=== PATIENT | male | born 2000 | race Caucasian/White ===

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

== ENCOUNTER → 2019-09-21 16:18 | Outpatient (CLI) | payer OTHER, SELFPAY ==
[2019-09-21 18:02] LABS: Alanine Aminotransferase 17 IU/L (21-72); Albumin 5.3 g/dL (3.5-5.0); Albumin Globulin Ratio 2.3 (1.0-2.8); Alkaline Phosphatase 80 U/L (38-126); Aspartate Aminotransferase 24 IU/L (17-59); BUN Creatinine Ratio 21.3 (6-22); Bilirubin Total 0.6 mg/dL (0.2-1.3); Blood Urea Nitrogen 17 mg/dL (9-20); Calcium 10.5 mg/dL (8.4-10.2); Carbon Dioxide 30 mmol/L (22-32); Chloride 99 mmol/L (98-107); Estimated Glomerular Filt Rate > 60.0 mL/min (>60); Globulin 2.3 g/dL (1.7-4.1); Glucose 107 mg/dL (70-100); HEMOLYSIS 18 (0-50); Potassium 5.2 mmol/L (3.4-5.1); Sodium 140 mmol/L (137-145); Total Protein 7.6 g/dL (6.3-8.2)
[2019-09-21 18:30] LABS: TSH w/ Reflex to FT4 2.66 uIU/mL (0.47-4.68)
== END ==
PROVIDERS: Family Provider Registered Nurse; PCP Registered Nurse; Visit Provider Hospitalist
DX: E04.9 Nontoxic goiter, unspecified (principal)
CPT/HCPCS: 36415; 80053; 84443

== ENCOUNTER → 2019-09-27 08:42 | Outpatient (CLI) | payer OTHER, SELFPAY ==
--- NOTE | 2019-09-27 08:45 | DI.US.S_ITS ---
PROCEDURE: US THYROID INDICATIONS: NONTOXIC GOITER TECHNIQUE: Real-time scanning was performed of the thyroid gland, with image documentation. COMPARISON: None. FINDINGS: Right: Thyroid lobe measures 3.8 x 1.2 x 1.2 cm, and is homogeneous in echotexture. Left: Thyroid lobe measures 3.7 x 1.1 x 1.0 cm, and is homogenous in echotexture. Isthmus: 2 mm thick. IMPRESSION: Normal size and echotexture of thyroid gland. Dictated by: Brandan Nicholas M.D. on 09/27/2019 at 10:32 Approved by: Brandan Nicholas M.D. on 09/27/2019 at 10:33
== END ==
PROVIDERS: Family Provider Registered Nurse; PCP Registered Nurse; Visit Provider Hospitalist
DX: E04.9 Nontoxic goiter, unspecified (principal)
CPT/HCPCS: 76536

== ENCOUNTER 2019-10-23 05:23 | Emergency (ER) | payer OTHER, SELFPAY ==
[2019-10-23 05:33] VITALS: BP 128/88; PULSE 91; RESP 16; TEMP 36.9; O2SAT 97; BMI 18.3
--- NOTE | 2019-10-23 05:48 | ED_ITS ---
HPI - General Adult General Chief complaint: Eye Problems Stated complaint: something in vision field Time Seen by Provider: 10/23/19 05:32 Source: patient and family Mode of arrival: Ambulatory Limitations: no limitations History of Present Illness HPI narrative: 19-year-old male here for evaluation of bright flashing lights in both of his eyes. He states that the symptoms have been going on since last evening. Denies any other associated symptoms. He states that the flashes are ?pulsating? he states there white in color. They are in both of his eyes. They are worse when he closes his eyes. Almost resolved when he opens his eyes. He does see them in the eye that is closed when he only closes 1 eye. When he closes his eyes and then moves his eyeball he states that the flashes follow where he is looking ?somewhat ?he is worried that he is going to go blind. He does were glasses. No contacts. No prior surgeries on his eyes. He states there are no black spots in the areas where the white flashes are located Related Data Home Medications Medication Instructions Recorded Confirmed CA PANTOTHENATE/FOLIC ACID/VIT 1 tab PO QDAY #0 01/26/13 01/27/19 (MULTIVITAMIN) Allergies Allergy/AdvReac Type Severity Reaction Status Date / Time No Known Drug Allergies Allergy Unverified 09/21/19 15:59 Review of Systems Constitutional Constitutional: Denies fever(s) and Denies frequent falls Eyes Eyes: Denies blind spots, Denies blurry vision, Denies decreased night vision, Denies diplopia, Denies dry eyes, Denies floaters, Denies irritation, Denies loss of vision, Reports seeing flashes, Denies photophobia and Denies spots in vision Cardiovascular Cardiovascular: Denies chest pain and Denies dyspnea Respiratory Respiratory: Denies dyspnea Integumentary/Breasts Skin/Breast: Denies rash Neurologic Neurologic: Denies behavioral changes, Denies frequent falls and Denies loss of vision Psychiatric Psychiatric: Reports anxiety and Denies behavioral changes Hematologic/Lymphatic Hematologic/Lymphatic: Denies easy bleeding and Denies easy bruising Patient History Medical History Anxiety and depression (Inactive) Attention deficit hyperactivity disorder (ADHD), combined type (Inactive) Enlarged thyroid (Inactive) Generalized anxiety disorder (Inactive) Social anxiety disorder (Inactive) Social History Smoking Status: Never smoker alcohol intake: never substance use type: does not use Substance Use Type: does not use Exam Initial Vital Signs Initial Vital Signs: Vital Signs Temperature 98.5 F 10/23/19 05:33 Pulse Rate 91 H 10/23/19 05:33 Respiratory Rate 16 10/23/19 05:33 Blood Pressure 128/88 10/23/19 05:33 Pulse Oximetry 97 10/23/19 05:33 Const General: cooperative, comfortable and well developed Orientation: alert, awake and oriented x3 HENMT Head: normal to inspection and normocephalic Ears: TM's normal bilaterally Nose: external nose normal Mouth: oral mucosae normal Eyes Visual Vogel: normal visual vogel by confrontation Alignment and Position: alignment normal Periorbital: periorbital findings normal Eyelids: eyelids normal Conjunctivae: conjunctivae normal Sclera: sclerae normal Cornea: corneas normal Pupils: PERRL, dilated, not fixed and pupil size bilaterally 8 EOM: EOM intact bilaterally Direct ophthalmoscopy: normal light reflex, photophobia present, no papilledema, fundi normal bilaterally, photophobia not present and no vascular abnormalities Resp Effort & Inspection: normal respiratory effort Cardio Rate: regular rate Skin Lesions: no lesions Rashes: no rashes Neuro General: alert, awake and oriented x3 Cranial Nerves: CN's II-XI intact bilaterally Cognition: normal cognition Speech: speech normal Psych Appearance: well kempt Affect: anxious affect Course Orders Ordered: Discontinued Medications Proparacaine HCl (Parcaine 0.5% Ophth Kerri) 1 drops EYE-LEFT NOW ONE Stop: 10/23/19 05:34 Vital Signs Vital signs: Vital Signs - 8 hr 10/23/19 05:33 Temperature 98.5 F Pulse Rate 91 H Respiratory Rate 16 Blood Pressure 128/88 Pulse Oximetry 97 Medical Decision Making [facility] Narrative Medical decision making narrative: Interocular pressure right eye 22 interocular left eye 18. Visual acuity 20/20 OD and OS patient does have dilated pupils which made a direct visualization of the optic disc and read no fairly easy at bedside. I see no papilledema. No physical exam findings of central retinal artery or central retinal vein occlusion. The retina appears normal. No foreign bodies were noted in the eye. Symptoms could potentially be vitreous detachment. He is also extremely anxious. Does have a history of anxiety. This could also be adding to his symptoms. I do not feel the patient needs emergent ophthalmological evaluation. I did discuss this with the patient and his mother who is at bedside. Plan will be if his symptoms worsen or do not improve they can call the ophthalmology department tomorrow for follow-up. They were given return precautions. He expressed understanding and agreement plan. Discharge Plan Departure Patient Disposition: Home Clinical Impression: Vision abnormalities Instructions: DI for Visual Field Disturbances Activity Restrictions/Additional Instructions: If her symptoms worsen or do not improve you can contact the ophthalmology department here at the [facility] at [phone]. You can contact them tomorrow morning. Return to the emergency department for any new or worsening symptoms Prescriptions: No Action CA PANTOTHENATE/FOLIC ACID/VIT (MULTIVITAMIN) 1 tab PO QDAY Qty: 0 RF: 0 Referrals: Patria Simon ARNP [Primary Care Provider] -
[2019-10-23] MEDS: PROPARACAINE 0.5% OPHTH SOL 1 DROPS EYE-LEFT (06:18)
== END 2019-10-23 06:27 | disposition home or self-care (01) ==
LOC: ED 06:02
PROVIDERS: Emergency Provider Emergency Medicine; Family Provider Registered Nurse; PCP Registered Nurse
DX: H53.9 Unspecified visual disturbance (principal)
CPT/HCPCS: 99283

== ENCOUNTER 2024-03-12 19:21 | Emergency (ER) | payer BC, SELFPAY ==
[2024-03-12 19:31] VITALS: BP 134/97; PULSE 74; RESP 24; TEMP 37.2; O2SAT 97; BMI 25.8
--- NOTE | 2024-03-12 22:32 | ED_ITS ---
HPI - Psych General Chief Complaint: Psychiatric Symptoms Stated Complaint: Mental Health Issue Time Seen by Provider: 03/12/24 21:43 Source: patient and family Mode of arrival: Ambulatory History of Present Illness HPI Narrative: 23-year-old male with history of OCD, anxiety, depression presents with his parents for worsening anxiety and depression. Patient reportedly had medication changed by his psychiatrist 1.5 months ago and thinks that this afternoon he had a ?bad reaction to it?. While in the emergency department patient states that he feels much better and has no complaints. Patient's case discussed with his parents with patient's permission. They state that patient has had longstanding anxiety and depression that only seems to be getting worse. They state that he was preoccupied with his brain stating ?something is wrong, something is wrong?. They also state that patient's functionality has declined and he cries every night due to his anxiety and depression. He has no friends and recently the one thing he liked to do (learning [place]) was taken away since the person teaching moved away. Parents are fearful of patient's overall mental state and believe he needs help. Related Data Home Medications Medication Instructions Recorded Confirmed levothyroxine 75 mcg tablet 75 mcg PO DAILY 04/14/22 03/12/24 methylphenidate HCl 20 mg tablet 20 mg PO DAILY 03/12/24 03/12/24 Previous Rx's Medication Instructions Recorded fluvoxamine 50 mg tablet 100 mg (2 x 50 mg) PO DAILY #60 01/27/24 tabs Allergies Allergy/AdvReac Type Severity Reaction Status Date / Time No Known Drug Allergies Allergy Verified 11/12/22 15:08 Review of Systems Review of Systems Narrative: Negative except as noted above Patient History Medical History Obsessive-compulsive disorder with good or fair insight Enlarged thyroid Anxiety and depression Attention deficit hyperactivity disorder (ADHD), combined type Social anxiety disorder Generalized anxiety disorder Social History Smoking Status: Never smoker alcohol intake: never substance use type: does not use Smoking Status: Never smoker Substance Use Type: does not use Exam Initial Vital Signs Initial Vital Signs: Vital Signs Temperature 99 F 03/12/24 19:31 Pulse Rate 74 03/12/24 19:31 Respiratory Rate 24 03/12/24 19:31 Blood Pressure 134/97 H 03/12/24 19:31 Pulse Oximetry 97 03/12/24 19:31 Oxygen Delivery Method Room Air 03/12/24 19:31 Const: Awake, alert, no acute distress, nontoxic appearing Cardiac: regular rate, regular rhythm RESP: unlabored, clear bilaterally, no wheezing GI: Soft, nontender, nondistended, no rebound, no guarding MSK: Atraumatic, full range of motion, pulses equal Skin: Warm, Dry, intact, no rashes Neuro: AO x3, CN II-XII grossly intact, moves all extremities Psych: Flat affect, moderate eyesight, poor insight Course Orders Ordered: ED Orders 03/12/24 22:28 EKG-12 Lead Stat 03/12/24 22:41 CT head/brain wo con Stat 03/12/24 22:46 Acetaminophen Stat CBC Auto Diff [Complete Blood Count AUTO DIFF] Stat CMP [Comprehensive Metabolic Panel] Stat COVID19 -Nasal RAPID Stat Ethanol (ETOH) Stat Ictotest Urine Stat Salicylate Stat TSH [Thyroid Stimulating Hormone] Stat UA Complete [Urinalysis and Microscopic] Stat Urine Drug Screen, Rapid Stat 03/13/24 01:01 Consult to DIRECTOR INSURANCE - Game Moderator Stat Discontinued Medications Ondansetron HCl (Ondansetron 4 Mg Odt) 4 mg SL NOW ONE Stop: 03/12/24 23:36 Last Admin: 03/12/24 23:42 Dose: 4 mg Documented By: CHINEDU Quetiapine Fumarate (Quetiapine 25 Mg Tablet) 50 mg PO NOW ONE Stop: 03/12/24 23:45 Last Admin: 03/12/24 23:49 Dose: 50 mg Documented By: CHINEDU Vital Signs Vital signs: Vital Signs - 8 hr 03/12/24 19:31 Temperature 99 F Pulse Rate 74 Respiratory Rate 24 Blood Pressure 134/97 H Pulse Oximetry 97 Oxygen Delivery Method Room Air MDM - Psych Lab Data 03/12/24 22:46 03/12/24 22:46 Labs: Lab Results 03/12/24 03/12/24 Range/Units 22:46 22:46 WBC 10.7 (4.5-11.0) X10^3/uL RBC 5.46 (4.5-5.9) X10^6/uL Hgb 15.9 (13.5-17.5) g/dL Hct 46.5 (41-53) % MCV 85.1 (80-100) fL MCH 29.2 (26-34) PG MCHC 34.3 (30-36) % RDW 13.6 (11.6-14.8) % Plt Count 276 (150-400) X10^3/uL Neut % (Auto) 66.3 (50-75) % Lymph % (Auto) 26.4 (25-40) % [place] % (Auto) 5.6 (3-14) % Eos % (Auto) 0.8 L (2-4) % Baso % (Auto) 0.9 (0-2) % Neut # (Auto) 7100 H (0732-7348) /uL Lymph # (Auto) 2800 (9945-9144) /uL [place] # (Auto) 600 (0-900) /uL Eos # (Auto) 100 (0-450) /uL Baso # (Auto) 100 (0-100) /uL Sodium 140 (137-145) mmol/L Potassium 3.8 (3.4-5.1) mmol/L Chloride 105 (98-107) mmol/L Carbon Dioxide 27 (22-32) mmol/L BUN 14 (9-20) mg/dL Creatinine 0.95 (0.66-1.25) mg/dL Estimated GFR > 60 (>60) mL/min BUN/Creatinine Ratio 14.7 (6-22) Glucose 94 (70-100) mg/dL Calcium 9.9 (8.4-10.2) mg/dL Total Bilirubin 0.6 (0.2-1.3) mg/dL AST 29 (17-59) IU/L ALT 34 (<50) IU/L Alkaline Phosphatase 87 (38-126) U/L Total Protein 7.9 (6.3-8.2) g/dL Albumin 5.1 H (3.5-5.0) g/dL Globulin 2.8 (1.7-4.1) g/dL Albumin/Globulin Ratio 1.8 (1.0-2.8) TSH 9.80 H (0.47-4.68) uIU/mL Urine Color Yellow Urine Appearance Clear Urine pH 6.0 Normal (4.5-8.0) Ur Specific [place] >=1.030 H (1.000-1.035) Urine Protein Negative (Negative) Urine Glucose (UA) Negative (Negative) g/dL Urine Ketones 3+ H (NEGATIVE) Urine Occult Blood Trace-intact (Negative) Urine Nitrate Negative (Negative) Urine Bilirubin 1+ H (NEGATIVE) Ur Bilirubin Confirm Negative (Negative) Urine Urobilinogen 0.2 (0.2) E.U./dL Ur Leukocyte Esterase Negative (NEGATIVE) Urine RBC 1-5/hpf (0-5/HPF) Urine WBC None seen (0-5/HPF) Ur Squamous Epith Cells 0-1 /hpf (0-5/HPF) Urine Bacteria Occasional (0-1) (None) Urine Mucus 2+ H (Negative) Ur Culture Indicated? Cult not indicated Vol Urine Centrifuged 10ml (spun) Salicylates < 1.0 (<20) mg/dL U Opiates 300ng/mL cut Negative (Negative) Ur Oxycodone Screen Negative (Negative) Urine Methadone Screen Negative (Negative) Acetaminophen < 10 (10-30) ug/mL Ur Barbiturates Screen Negative (Negative) U Tricyclic Antidepress Negative (Negative) Ur Phencyclidine Scrn Negative (Negative) Ur Amphetamines Screen Negative (Negative) U Methamphetamines Scrn Negative (Negative) Ur MDMA Scrn (Ecstasy) Negative (Negative) U Benzodiazepines Scrn Negative (Negative) Urine Cocaine Screen Negative (Negative) U Marijuana (THC) Screen Negative (Negative) Urine Specific [place] Normal (Normal) Ethyl Alcohol < 10 ( - 10) mg/dL Ur Creatinine Normal (Normal) SARS-CoV-2 (PCR) Negative (Negative) MDM Narrative Medical decision making narrative: Worsening anxiety and OCD tendencies. Parents are very worried about patient's declining mental health status. He has been on numerous medications and switches from his psychiatrist but they do not seem to be improving. Patient denies active SI or HI, would like to pursue voluntary treatment. Medical clearance labs ordered. Parents state that patient is obsessed with the idea that there was something wrong in his brain. It does not appear that patient was jhonny had brain imaging performed earlier so a CT brain will be ordered. Laboratory work is reviewed, negative for acute findings. CT brain negative for acute findings. Medically cleared for social work evaluation tomorrow morning. In the middle of the night the patient called his parents stating that he no longer wanted to wait for social work and requested that they come and pick him up from the emergency department. Patient counseled on his lab and imaging findings, emphasized the need for follow up with his psychiatrist. Discharge Plan Departure Patient Disposition: Home Clinical Impression: Anxiety and depression Instructions: DI for Anxiety -- Adult Activity Restrictions/Additional Instructions: Your laboratory work today was significant for an elevated thyroid stimulating hormone level. This is an incidental finding, but I do recommend that you follow up with your primary care physician for this. Your brain scan was normal. Call [phone] if you experience a mental health crisis Prescriptions: No Action levothyroxine 75 mcg tablet 75 mcg PO DAILY fluvoxamine 50 mg tablet 100 mg PO DAILY Qty: 60 2RF methylphenidate HCl 20 mg tablet 20 mg PO DAILY Referrals: Mayo Guillen MD [Primary Care Provider] - Stand Alone Forms: Patient Portal/API
--- NOTE | 2024-03-12 22:41 | DI.CT.S_ITS ---
PROCEDURE: CT HEAD/BRAIN WO CON INDICATIONS: worsening delusions, paranoia TECHNIQUE: Noncontrast 4.5 mm thick angled axial sections acquired from the foramen magnum to the vertex, with coronal and sagittal reformats. For radiation dose reduction, the following was used: automated exposure control, adjustment of mA and/or kV according to patient size. COMPARISON: None. FINDINGS: Image quality: Diagnostic. CSF spaces: Basal cisterns are patent. No extra-axial fluid collections. The ventricles are symmetric in size and shape. Brain: No intracranial bleeds or masses. There is cerebral volume loss for age, with resultant ventricular and sulcal prominence. There are periventricular and deep white matter chronic small vessel ischemic changes. There is intracranial internal carotid artery atherosclerosis. Skull and face: Calvarium and visualized facial bones appear intact, without suspicious lesions. Sinuses: Visualized sinuses and mastoids are clear. IMPRESSION: No acute intracranial pathology. Dictated by: Albert Davalos M.D. on 03/12/2024 at 22:46 Approved by: Albert Davalos M.D. on 03/12/2024 at 22:47
[2024-03-12 22:57] LABS: Add Manual Diff / Slide Review NO; Basophils Absolute Auto 100 /uL (0-100); Basophils Percent Auto 0.9 % (0-2); Eosinophils Absolute Auto 100 /uL (0-450); Eosinophils Percent Auto 0.8 % (2-4); Hematocrit 46.5 % (41-53); Hemoglobin 15.9 g/dL (13.5-17.5); Lymphocytes Absolute Auto 2800 /uL (1100-4500); Lymphocytes Percent Auto 26.4 % (25-40); Mean Corpuscular HGB Conc 34.3 % (30-36); Mean Corpuscular Hemoglobin 29.2 PG (26-34); Mean Corpuscular Volume 85.1 fL (80-100); Monocytes Absolute Auto 600 /uL (0-900); Monocytes Percent Auto 5.6 % (3-14); Neutrophils Absolute Auto 7100 /uL (1500-7000); Neutrophils Percent Auto 66.3 % (50-75); Platelet Count 276 X10^3/uL (150-400); Red Blood Cell Count 5.46 X10^6/uL (4.5-5.9); Red Cell Distribution Width 13.6 % (11.6-14.8); White Blood Cell Count 10.7 X10^3/uL (4.5-11.0)
[2024-03-12 23:07] LABS: Appearance Urine UA CLEAR; Bilirubin Urine UA 1+ (NEGATIVE); Color Urine UA YELLOW; Glucose Urine UA NEGATIVE (Negative); Ketones Urine UA 3+ (NEGATIVE); Leukocyte Esterase Urine UA NEGATIVE (NEGATIVE); Nitrite Urine UA NEGATIVE (Negative); Occult Blood Urine UA TRACE-INTACT (Negative); Protein Urine UA NEGATIVE (Negative); Specific Gravity Urine UA >=1.030 (1.000-1.035); Urobilinogen Urine UA 0.2 E.U./dL (0.2)
[2024-03-12 23:11] LABS: UR Morphine/Opiate cutoff 300 Negative (Negative); Ur Creatinine Normal (Normal); Ur Specific Gravity Normal (Normal); Urine Amphetamines Negative (Negative); Urine Barbiturates Negative (Negative); Urine Benzodiazepines Negative (Negative); Urine Cocaine Negative (Negative); Urine MDMA Negative (Negative); Urine Methadone Negative (Negative); Urine Methamphetamines Negative (Negative); Urine Oxycodone Negative (Negative); Urine Phencyclidine Negative (Negative); Urine Tetrahydrocannabinol Negative (Negative); Urine Tricyclic Antidepressant Negative (Negative); Urine pH Normal (Normal)
[2024-03-12 23:12] LABS: Acetaminophen < 10 ug/mL (10-30); Alanine Aminotransferase 34 IU/L (<50); Albumin 5.1 g/dL (3.5-5.0); Albumin Globulin Ratio 1.8 (1.0-2.8); Alkaline Phosphatase 87 U/L (38-126); Aspartate Aminotransferase 29 IU/L (17-59); BUN Creatinine Ratio 14.7 (6-22); Bilirubin Total 0.6 mg/dL (0.2-1.3); Blood Urea Nitrogen 14 mg/dL (9-20); Calcium 9.9 mg/dL (8.4-10.2); Carbon Dioxide 27 mmol/L (22-32); Chloride 105 mmol/L (98-107); Estimated Glomerular Filt Rate > 60 mL/min (>60); Ethanol (ETOH) < 10 mg/dL; Globulin 2.8 g/dL (1.7-4.1); Glucose 94 mg/dL (70-100); HEMOLYSIS 16 (0-50); Potassium 3.8 mmol/L (3.4-5.1); Salicylate < 1.0 mg/dL (<20); Sodium 140 mmol/L (137-145); Total Protein 7.9 g/dL (6.3-8.2)
[2024-03-12 23:16] LABS: Bacteria Urine Occasional (0-1); Culture Indicated Urine Cult Not Indicated; Ictotest Urine Negative (Negative); Mucus Urine 2+ (Negative); RBC Urine 1-5/HPF (0-5/HPF); Squamous Epithelial Cell Urine 0-1 /HPF (0-5/HPF); Urine Volume 10mL (spun); WBC Urine None Seen (0-5/HPF)
[2024-03-12 23:35] LABS: COVID19 -Nasal RAPID Negative (Negative)
[2024-03-12] MEDS: ONDANSETRON 4 MG ODT SL (23:42)
[2024-03-12] MEDS: QUETIAPINE 25 MG TABLET 50 MG PO (23:49)
--- NOTE | 2024-03-13 01:15 | PC.NURSE ---
Pt called out using call light. Pt states that he was nervous about being transferred and felt that something was wrong with his brain. Pt reoriented to the situation and walked through breathing exercises. Pt was also vomiting after hyperventilation. Pt advised that his tests and labs were within acceptable limits. Pt walked through signs and symptoms of stroke. Pt also given an explanation as to low likely millan of him having a stroke at this time. Pt verbalized understanding. Pt tearful, but appears to have calmed down. Pt sheets changed, warm blankets given. Pt lights turned off for comfort, door closed to minimize stimulation.
--- NOTE | 2024-03-13 03:30 | PC.NURSE ---
Pt states that he would like to leave due to another pts aggressive behavior and yelling in another room.
--- NOTE | 2024-03-13 03:56 | PC.NURSE ---
Pt stating that he wants to leave and that he has called his parents. Pts parents at the bedside. This RN discussed options with the pt and the pts parents. Pt opts to leave still. Pt encouraged to seek help and return at a later time. Pt advised that social work would be back in the morning and encouraged to check back in and be screened. Pt and pts parents verbalized understanding. DAMASO Buchanan advised that the pt is leaving. Discharge paperwork reviewed with the pt and pts parents. Questions, comments, and concerns addressed.
[2024-03-13 04:26] VITALS: BP 148/88; PULSE 121; RESP 18; O2SAT 94
== END 2024-03-13 04:00 | disposition home or self-care (01) ==
PROVIDERS: Emergency Provider Emergency Medicine; Family Provider Registered Nurse; PCP Student in an Organized Health Care Education/Training Program
DX: F41.9 Anxiety disorder, unspecified (principal); F22 Delusional disorders; Z20.822 Contact with and (suspected) exposure to COVID-19
CPT/HCPCS: 70450; 80053; 80305; 80320; 80329; 81001; 84443; 85025; 87635; 99283; 99284; G0480

== ENCOUNTER → 2024-08-24 08:12 | Outpatient (CLI) | payer BC, SELFPAY ==
[2024-08-24 08:34] LABS: Add Manual Diff / Slide Review NO; Basophils Absolute Auto 0 /uL (0-100); Basophils Percent Auto 0.5 % (0-2); Eosinophils Absolute Auto 200 /uL (0-450); Eosinophils Percent Auto 2.5 % (2-4); Hematocrit 45.5 % (41-53); Hemoglobin 15.6 g/dL (13.5-17.5); Lymphocytes Absolute Auto 2900 /uL (1100-4500); Lymphocytes Percent Auto 35.8 % (25-40); Mean Corpuscular HGB Conc 34.3 % (30-36); Mean Corpuscular Hemoglobin 28.6 PG (26-34); Mean Corpuscular Volume 83.4 fL (80-100); Monocytes Absolute Auto 500 /uL (0-900); Monocytes Percent Auto 6.7 % (3-14); Neutrophils Absolute Auto 4400 /uL (1500-7000); Neutrophils Percent Auto 54.5 % (50-75); Platelet Count 349 X10^3/uL (150-400); Red Blood Cell Count 5.45 X10^6/uL (4.5-5.9); Red Cell Distribution Width 14.4 % (11.6-14.8)
[2024-08-24 09:01] LABS: Alanine Aminotransferase 41 IU/L (<50); Albumin 4.4 g/dL (3.5-5.0); Albumin Globulin Ratio 1.7 (1.0-2.8); Alkaline Phosphatase 81 U/L (38-126); Aspartate Aminotransferase 26 IU/L (17-59); BUN Creatinine Ratio 11.3 (6-22); Bilirubin Total 0.6 mg/dL (0.2-1.3); Blood Urea Nitrogen 11 mg/dL (9-20); Calcium 9.6 mg/dL (8.4-10.2); Carbon Dioxide 28 mmol/L (22-32); Chloride 103 mmol/L (98-107); Estimated Glomerular Filt Rate > 60 mL/min (>60); Globulin 2.6 g/dL (1.7-4.1); Glucose 102 mg/dL (70-100); HEMOLYSIS < 15 (0-50); Potassium 4.7 mmol/L (3.4-5.1); Sodium 138 mmol/L (137-145)
[2024-08-24 18:47] LABS: Lithium 0.2 mmol/L (0.6-1.2)
== END ==
PROVIDERS: Family Provider Registered Nurse; Referring Provider Psychiatry & Neurology Psychiatry; Visit Provider Psychiatry & Neurology Psychiatry
DX: F31.9 Bipolar disorder, unspecified (principal); Z79.899 Other long term (current) drug therapy
CPT/HCPCS: 36415; 80053; 80178; 84443; 85025

== ENCOUNTER → 2024-09-19 16:15 | Outpatient (CLI) | payer BC, SELFPAY ==
[2024-09-19 17:44] LABS: Lithium 0.3 mmol/L (0.6-1.2)
== END ==
LOC: LAB 16:15
PROVIDERS: Family Provider Registered Nurse; Referring Provider Psychiatry & Neurology Psychiatry; Visit Provider Psychiatry & Neurology Psychiatry
DX: Z79.899 Other long term (current) drug therapy (principal); F31.9 Bipolar disorder, unspecified
CPT/HCPCS: 80178

== ENCOUNTER → 2024-09-29 08:19 | Outpatient (CLI) | payer BC, SELFPAY ==
[2024-09-29 10:21] LABS: Lithium 0.8 mmol/L (0.6-1.2)
== END ==
PROVIDERS: Family Provider Registered Nurse; Referring Provider Psychiatry & Neurology Psychiatry; Visit Provider Psychiatry & Neurology Psychiatry
DX: F31.9 Bipolar disorder, unspecified (principal); Z79.899 Other long term (current) drug therapy; F90.9 Attention-deficit hyperactivity disorder, unspecified type; F41.1 Generalized anxiety disorder
CPT/HCPCS: 36415; 80178

== ENCOUNTER → 2024-11-01 08:06 | Outpatient (CLI) | payer BC, SELFPAY ==
[2024-11-01 10:09] LABS: Lithium 0.7 mmol/L (0.6-1.2)
[2024-11-02 05:28] LABS: Valproic Acid (Depakene) Total 38 ug/mL (50-100)
== END ==
PROVIDERS: Family Provider Registered Nurse; Referring Provider Psychiatry & Neurology Psychiatry; Visit Provider Psychiatry & Neurology Psychiatry
DX: F31.9 Bipolar disorder, unspecified (principal); Z79.899 Other long term (current) drug therapy
CPT/HCPCS: 36415; 80164; 80178

== ENCOUNTER → 2024-11-16 09:08 | Outpatient (CLI) | payer BC, SELFPAY ==
[2024-11-17 07:08] LABS: Valproic Acid (Depakene) Total 68 ug/mL (50-100)
== END ==
PROVIDERS: Family Provider Registered Nurse; Referring Provider Psychiatry & Neurology Psychiatry; Visit Provider Psychiatry & Neurology Psychiatry
DX: F31.9 Bipolar disorder, unspecified (principal); Z79.899 Other long term (current) drug therapy
CPT/HCPCS: 36415; 80164

== ENCOUNTER → 2024-12-01 08:00 | Outpatient (CLI) | payer BC, SELFPAY ==
[2024-12-01 09:54] LABS: Cortisol Random 1.63 ug/dL
[2024-12-06 22:36] LABS: Dexamethasone, Serum 330 ng/dL (.)
== END ==
PROVIDERS: Family Provider Registered Nurse; Referring Provider Internal Medicine Endocrinology, Diabetes & Metabolism; Visit Provider Internal Medicine Endocrinology, Diabetes & Metabolism
DX: E24.9 Cushing's syndrome, unspecified (principal)
CPT/HCPCS: 36415; 80375; 82533